=== PATIENT | female | born 1995 | race Caucasian/White ===

== ENCOUNTER → 2022-12-30 | Outpatient (CLI) | payer OTHER | END | disposition home or self-care (01) | LOC: RAD 15:17 | PROVIDERS: ATTEND Nurse Practitioner Family | DX: S93.491A Sprain of other ligament of right ankle, initial encounter (principal); M79.89 Other specified soft tissue disorders; X58.XXXA Exposure to other specified factors, initial encounter; Y93.89 Activity, other specified; Y92.89 Other specified places as the place of occurrence of the external cause; Y99.8 Other external cause status ==

== ENCOUNTER → 2023-08-25 | Outpatient (CLI) | payer OTHER | END | disposition home or self-care (01) | LOC: RAD 10:37 | PROVIDERS: ATTEND Nurse Practitioner Family | DX: R05.3 Chronic cough (principal) ==

== ENCOUNTER 2023-11-19 20:12 | Emergency (ER) | payer OTHER ==
[~2023-11-19] VITALS: Ht 157.4 cm; Wt 95.3 kg
[2023-11-19 20:22] VITALS: BP 132/95
[2023-11-19] MEDS ORDERED: ESCITALOPRAM OXA5 MG PO (20:23)
[2023-11-19] MEDS ORDERED: TRAZODONE100 MG PO (20:24)
[2023-11-19] MEDS ORDERED: GOOD NEIGHBOR L10 MG PO (20:24)
[2023-11-19] MEDS ORDERED: ADVAIR 250/501 EA INH (20:25)
[2023-11-19 20:55] LABS: BASO % 0.4 % (0.0-1.0); EOS # 0.1 10*3/uL (0.0-0.4); EOS % 1.2 % (1.0-4.0); HEMATOCRIT 39.3 % (37.0-47.0); LYMPH # 2.4 10*3/uL (1.3-4.4); LYMPH % 26.2 % (27.0-41.0); MEAN CELL VOLUME 86.2 fl (81.0-99.0); MEAN CORPUSCULAR HGB 26.5 pg (27.0-31.0); MEAN CORPUSCULAR HGB CONC 30.8 g/dl (33.0-37.0); MEAN PLATELET VOLUME 9.8 fl (9.6-12.3); MONO # 0.8 10*3/uL (0.1-1.0); MONO % 8.6 % (3.0-9.0); NEUT # 5.7 10*3/uL (2.3-7.9); NEUT % 63.4 % (47.0-73.0); PLATELET COUNT AUTOMATED 304 10*3/uL (130-400); RED BLOOD COUNT 4.56 10*6/uL (4.10-5.10); RED CELL DISTRI WIDTH 14.2 % (0-14.5)
[2023-11-19] MEDS ORDERED: IBUPROFEN 800 MG TAB PO ONE (21:00)
[2023-11-19 21:17] LABS: BUN 10 mg/dl (9-23); CHLORIDE 105 mmol/L (98-107); POTASSIUM 3.7 mmol/L (3.4-5.1)
== END 2023-11-19 22:26 | disposition home or self-care (01) ==
LOC: ED 20:12
PROVIDERS: Nurse Practitioner
DX: Z77.098 Contact with and (suspected) exposure to other hazardous, chiefly nonmedicinal, chemicals (principal); R06.89 Other abnormalities of breathing; Z79.899 Other long term (current) drug therapy